=== PATIENT | female | born 1995 | race Caucasian/White ===

== ENCOUNTER 2022-09-27 08:20 | Emergency (ER) | payer BC, SELFPAY ==
--- NOTE | ~2022-09-27 | XR_ITS ---
EXAMINATION: XR finger 5th LT min 2V DATE: 09/27/2022 08:40 INDICATION: Pain at the left fifth digit post injury TECHNIQUE: Dorsal palmar, lateral and 2 oblique views of the left fifth digit were obtained COMPARISON: None FINDINGS: Alignment is normal. No fracture. Joint spaces are normal. Soft tissues are unremarkable. IMPRESSION: 1. Negative left fifth digit radiographs. Reviewed, dictated and finalized at location B.
[2022-09-27 08:31] VITALS: BP 140/80; PULSE 77; RESP 16; TEMP 37.3; O2SAT 99
--- NOTE | 2022-09-27 08:47 | ED.UPPEXIN ---
HPI - Extremity Injury (Upper) General Chief Complaint: Extremity Injury, Upper Stated Complaint: Left Hand Pain Time Seen by Provider: 09/27/22 08:41 Source: patient and RN notes reviewed Mode of arrival: ambulatory Limitations: no limitations History of Present Illness HPI narrative: Patient presents today complaining of injury to her left 5th finger. Last night she was walking her dog when a fire work when off and the dog ran away from her, jerking the leash on her finger. She currently rates her pain 4/10 and has been taking ibuprofen with some relief. Denies numbness or tingling. Related Data Home Medications Medication Instructions Recorded Confirmed escitalopram oxalate 20 mg tablet 20 mg PO DAILY 09/27/22 09/27/22 Allergies Allergy/AdvReac Type Severity Reaction Status Date / Time No Known Allergies Allergy Mild Verified 09/27/22 08:31 Review of Systems Review of Systems: CONSTITUTIONAL: Denies body aches, fever, chills, or sweats. EYES: Denies visual changes, redness, or discharge. ENT: Denies rhinorrhea, congestion, sore throat, or otalgia. CARDIOVASCULAR: Denies chest pain, palpitations, or edema. RESPIRATORY: Denies cough or dyspnea. GASTROINTESTINAL: Denies abdominal pain, nausea, vomiting, or diarrhea. GENITOURINARY: Denies dysuria or hematuria. SKIN: Denies rash, itching, or wounds. MUSCULOSKELETAL: Denies back pain, or myalgia.+ left 5th finger injury NEUROLOGIC: Denies headache, numbness, tingling, or weakness. PSYCH: Denies depression or anxiety. PMFSH Comments At time of signature, I have reviewed and agree with nursing past medical, surgical, social and family history unless otherwise noted. Please see nursing chart for further information. There is no relevant family history pertinent to the presenting complaint Exam Narrative: GENERAL: Well-appearing, well-nourished, and in no acute distress. HEAD: Normocephalic, atraumatic. EYES: EOMI. No redness or drainage. Conjunctivae normal. ENT: Mucous membranes pink and moist. NECK: Normal AROM. CHEST: No respiratory distress. EXTREMITIES: Left 5th finger: Tenderness to the proximal and middle phalanx with bruising to the volar aspect of the proximal phalanx. Distal sensation intact. Capillary refill normal. Somewhat decreased active flexion due to pain. SKIN: Warm, dry, no rash. Capillary refill normal. Normal skin turgor. NEURO: No focal deficits. Alert and oriented x3. Gait steady. PSYCH: Normal affect. No signs of depression or anxiety. Course Course Level of Care: Express Care Visit Vital Signs Vital signs: Vital Signs Temperature 99.1 F 09/27/22 08:31 Pulse Rate 77 09/27/22 08:31 Respiratory Rate 16 09/27/22 08:31 Blood Pressure 140/80 09/27/22 08:31 Pulse Oximetry 99 09/27/22 08:31 Oxygen Delivery Room Air 09/27/22 08:31 Temperature 99.1 F 09/27/22 08:31 Pulse Rate 77 09/27/22 08:31 Respiratory Rate 16 09/27/22 08:31 Blood Pressure 140/80 09/27/22 08:31 Pulse Oximetry 99 09/27/22 08:31 Oxygen Delivery Room Air 09/27/22 08:31 Reviewed. Pt has been instructed to follow up with her PCP regarding her elevated blood pressure today. Procedures Orthopedic Splinting/Casting Injury #1: Splinting/Casting Date: 09/27/22 Splinting/Casting Time: 08:54 Side: left Upper Extremity Injury Location: finger Upper Extremity Immobilizer: finger (other) Splint: prefabricated Pre-Procedure Neuro Vascular Exam: normal Post-Procedure Neuro Vascular Exam: normal Additional Comments: Placed by tech [facility] - Extremity Injury (Upper) MDM Narrative Medical decision making narrative: X-ray negative for fracture. Patient would like a splint for immobilization and comfort. Anticipatory guidance given. Differential Diagnosis Differential diagnosis: Likely finger sprain and other (, contusion, finger fracture, finger dislocation)
== END 2022-09-27 09:03 | disposition home or self-care (01) ==
PROVIDERS: Emergency Provider Nurse Practitioner
DX: S63.697A Other sprain of left little finger, initial encounter (principal); X50.9XXA Other and unspecified overexertion or strenuous movements or postures, initial encounter; Y93.K1 Activity, walking an animal; F41.9 Anxiety disorder, unspecified; F32.A Depression, unspecified
CPT/HCPCS: 29130; 73140; 99213; G0463

== ENCOUNTER 2023-08-13 23:24 | Emergency (ER) | payer OTHER, SELFPAY ==
--- NOTE | ~2023-08-13 | CT_ITS ---
CT of the Abdomen and Pelvis: Indication: Abdominal pain Technique: 2.5 mm axial scans were obtained through the abdomen and pelvis following intravenous adm inistration of 100 cc of Omnipaque 350. Dose reduction technique was used on this scan by utilizing a utomated exposure control and iterative reconstruction technique. The dose-length product (DLP) was 7 90.39 mGy-cm. Findings: Scans through the lung bases are unremarkable. There is diffuse fatty infiltration of liver. The spleen, pancreas, gallbladder, adrenals and kidneys are within normal limits. No evidence of aortic aneurysm. No lymphadenopathy. No bowel obstruction or bowel wall thickening. There is no evidence to suggest acute appendicitis. Images through the pelvis were performed. Urinary bladder unremarkable. No adnexal mass seen. IUD in place. No ascites. Impression: Diffuse hepatic steatosis. No other significant findings. Reviewed, dictated and finalized at [facility]. Impression: Diffuse hepatic steatosis. No other significant findings.
[2023-08-13 23:28] VITALS: BP 142/81; PULSE 71; RESP 15; TEMP 35.9; O2SAT 100
--- NOTE | 2023-08-13 23:35 | ECG_ITS ---
SEE SCANNED COPY FOR CONFIRMED REPORT MTDD
--- NOTE | 2023-08-13 23:55 | ED.NAVMDI ---
HPI - Nausea/Vomiting/Diarrhea General Chief complaint: Nausea/Vomiting/Diarrhea <AGUSTIN Ochoa Last Filed: 08/16/23 19:52> Stated complaint: n/v, headache <AGUSTIN Ochoa Last Filed: 08/16/23 19:52> Time Seen by Provider: 08/13/23 23:37 <AGUSTIN Ochoa Last Filed: 08/16/23 19:52> Source: patient <AGUSTIN Ochoa Last Filed: 08/16/23 19:52> Mode of arrival: ambulatory <AGUSTIN Ochoa Last Filed: 08/16/23 19:52> Limitations: no limitations <AGUSTIN Ochoa Last Filed: 08/16/23 19:52> History of Present Illness HPI Narrative: This is a 28 year old female that presents to the ER for abdominal pain and vomiting. Ongoing over the last month. Worsening the last couple of days. She has been seen at another ER without cause found. She was started on omeprazole with little relief. Reports currently she is experiencing substernal chest pain that is sharp in nature. Denies fevers. <AGUSTIN Ochoa Last Filed: 08/16/23 19:52> Related Data Home medications: Home Medications Medication Instructions Recorded Confirmed escitalopram oxalate 20 mg tablet 20 mg PO DAILY 09/27/22 09/27/22 <AGUSTIN Ochoa Last Filed: 08/16/23 19:52> Allergies/Adverse reactions: Allergies Allergy/AdvReac Type Severity Reaction Status Date / Time No Known Allergies Allergy Mild Verified 09/27/22 08:31 <AGUSTIN Ochoa Last Filed: 08/16/23 19:52> Review of Systems Review of Systems: CONSTITUTIONAL: Denies fever CARDIOVASCULAR: Reports chest pain RESPIRATORY: Denies dyspnea. GASTROINTESTINAL: Reports abdominal pain, nausea, vomiting, and diarrhea. GENITOURINARY: Denies dysuria <AGUSTIN Ochoa Last Filed: 08/16/23 19:52> All systems reviewed & are unremarkable except as noted in HPI and below <Shelli Coelho PA-C - Last Filed: 08/16/23 19:52> PMFSH Past Medical History Medical History: Medical History (Updated 08/16/23 @ 19:52 by Shelli Coelho PA-C) History of anxiety History of depression History of hypertension <Shelli Coelho PA-C - Last Filed: 08/16/23 19:52> Social History Social History: Social History (Updated 08/14/23 @ 00:03 by Shelli Coelho PA-C) Substance use: never <Shelli Coelho PA-C - Last Filed: 08/16/23 19:52> Exam Narrative: GENERAL: Well-appearing, well-nourished, and in no acute distress. HEAD: Normocephalic, atraumatic. EYES: EOMI. CHEST: Clear to auscultation. No respiratory distress. No wheezes rales or rhonchi HEART: Regular rate and rhythm. No murmur heard. Normal peripheral pulses. ABDOMEN: Soft, nontender, nondistended, normal active bowel sounds. EXTREMITIES: Normal range of motion. No edema. SKIN: Warm, dry, no rash. NEURO: No focal deficits. Alert and oriented x3. PSYCH: Normal mood and affect <Shelli Coelho PA-C - Last Filed: 08/16/23 19:52> Course Course Emergency Course: Patient updated on workup thus far. Care taken over by Dr. Carmona at shift change <Shelli Coelho PA-C - Last Filed: 08/16/23 19:52> VEHICLE MAINTENANCE TECHNICIAN/PA Physician Supervision For this patient encounter, I reviewed the VEHICLE MAINTENANCE TECHNICIAN or PA documentation, treatment plan, and medical decision making and had [id number] time with this patient. I performed all aspects of the MDM as documented. <Tran Carmona MD - Last Filed: 08/14/23 03:44> Vital Signs Vital signs: Vital Signs Temperature 96.6 F L 08/13/23 23:28 Pulse Rate 71 08/13/23 23:28 Respiratory Rate 15 08/13/23 23:28 Blood Pressure 142/81 H 08/13/23 23:28 Pulse Oximetry 100 08/13/23 23:28 Oxygen Delivery Room Air 08/13/23 23:28 Temperature 96.6 F L 08/13/23 23:28 Pulse Rate 64 08/14/23 03:43 Respiratory Rate 17 08/14/23 03:43 Blood Pressure 110/73 08/14/23 03:43 Pulse Oximetry 97 08/14/23 03:43 Oxygen Delivery Room Air 08/13/23 23:28 Gina Rodriguez
[2023-08-14] MEDS: FAMOTIDINE 20 MG/2 ML VIAL IV PUSH (00:11)
[2023-08-14] MEDS: ONDANSETRON INJ 4 MG/2 ML VIAL IV PUSH (00:11)
[2023-08-14] MEDS: SODIUM CHLORIDE 0.9% IV 1,000 ML 999 ML IV CONT ×2 (00:11→02:01)
[2023-08-14 00:17] LABS: Basophils Absolute Auto 0.1 K/mm3 (0.0-0.1); Basophils Percent Auto 0.5 % (0.2-1.2); Eosinophils Absolute Auto 0.3 K/mm3 (0-0.3); Eosinophils Percent Auto 2.5 % (0-4.4); Hematocrit 40.7 % (37.0-47.0); Hemoglobin 14.3 g/dL (12.0-15.0); Immature Granulocyte Absolute 0.02 K/mm3 (0.00-0.031); Immature Granulocyte Percent A 0.2 % (0-0.5); Lymphocytes Absolute Auto 2.95 K/mm3 (0.9-3.2); Lymphocytes Percent Auto 28.9 % (18.3-44.2); Mean Corpuscular HGB Conc 35.1 g/dl (32-36); Mean Corpuscular Hemoglobin 30.8 pg (26-34); Mean Corpuscular Volume 87.7 fl (80-100); Mean Platelet Volume 10.9 fl (7.4-10.4); Monocytes Absolute Auto 0.8 K/mm3 (0.1-0.6); Monocytes Percent Auto 7.8 % (2.6-8.5); Neutrophils Absolute Auto 6.1 K/mm3 (1.3-6.7); Neutrophils Percent Auto 60.1 % (45.5-73.1); Platelet Count Result 230 k/mm3 (150-375); Red Blood Count 4.64 M/mm3 (4.2-5.4); Red Cell Distribution Width 14.2 % (11.5-14.5); White Blood Count 10.2 K/mm3 (4.5-10.0)
[2023-08-14 00:25] LABS: Prothrombin Time 13.7 Seconds (11.1-14.7)
[2023-08-14 00:26] LABS: Partial Thromboplastin Time 27.1 Seconds (22.3-36.8)
[2023-08-14 00:28] LABS: Alanine Aminotransferase 72 U/L (6-35); Albumin Level 4.8 g/dL (3.5-5.1); Alkaline Phosphatase 69 U/L (38-126); Anion Gap 10 mmol/L (4-12); Aspartate Amino Transferase 43 U/L (14-36); Bilirubin,Total 1.2 mg/dL (0.2-1.3); Blood Urea Nitrogen 11 mg/dL (7-17); Calcium 9.6 mg/dL (8.4-10.2); Carbon Dioxide 27 mmol/L (22-30); Chloride 100 mmol/L (98-107); Estimated CRCL calculation 108 ml/min; Estimated Glomerular Filt Rate > 60; Glucose 97 mg/dL (65-110); Lipase 95 U/L (23-300); Potassium 3.6 mmol/L (3.4-5.0); Sodium 137 mmol/L (137-145)
[2023-08-14 00:30] LABS: D Dimer 0.35 ug/mL (<0.48)
[2023-08-14 02:02] VITALS: BP 120/70; PULSE 63; RESP 19; O2SAT 100
[2023-08-14 02:12] LABS: Appearance Urine Clear (Clear); Bilirubin Urine Negative (Negative); Blood Urine Negative (Negative); Color Urine Yellow (Yellow); Glucose Urine UA Negative (Negative); Ketones Urine 1+ mg/dL (Negative); Leukocyte Esterase Ur Negative LEU/UL (Negative); Nitrate Urine Negative (Negative); Protein Urine Negative (Negative); Urobilinogen Urine 0.2 mg/dL (<2.0); pH Urine 5.5 (5.0-9.0)
[2023-08-14 02:25] LABS: Add Urine Microscopic? YES; Specific Grav Ur 1.059 (1.001-1.035)
[2023-08-14] MEDS: KETOROLAC 15 MG/ML VIAL (*BKC) IV PUSH (03:14)
[2023-08-14 03:43] VITALS: BP 110/73; PULSE 64; RESP 17; O2SAT 97
== END 2023-08-14 03:45 | disposition home or self-care (01) ==
PROVIDERS: Physician Assistant; Emergency Provider Emergency Medicine
DX: R10.9 Unspecified abdominal pain (principal); R11.2 Nausea with vomiting, unspecified; R19.7 Diarrhea, unspecified; I10 Essential (primary) hypertension; F41.9 Anxiety disorder, unspecified; F32.A Depression, unspecified; K76.0 Fatty (change of) liver, not elsewhere classified
CPT/HCPCS: 36415; 74177; 80053; 81001; 81025; 83690; 85025; 85380; 85610; 85730; 93005; 96361; 96374; 96375; 99284; J1885; J2405; J7030; Q9967

== ENCOUNTER 2023-10-03 01:57 | Emergency (ER) | payer OTHER, SELFPAY ==
--- NOTE | ~2023-10-03 | XR_ITS ---
Clinical Indication: Chest pain PA and lateral views of the chest: Comparison: 06/12/2011 Findings: The lungs are clear, without evidence of focal consolidation or pleural effusion. Cardiome diastinal silhouette is within normal limits. Bones and soft tissues are unremarkable. Impression: Normal chest. Reviewed, dictated and finalized at location . Impression: Normal chest.
--- NOTE | 2023-10-03 01:59 | ECG_ITS ---
Test Date: 2023-10-03 02:09:52 Measurements Intervals [place] Rate: 84 P: 40 FL: 146 QRS: 61 QRSD: 93 T: 41 QT: 369 QTc: 437 Interpretive Statements SINUS RHYTHM BASELINE ARTIFACT- I, III, AVL NORMAL ECG No previous ECG available for comparison Electronically Signed On 10-03-2023 06:12:37 CDT by Kristofer Rosa D.O.
[2023-10-03 02:00] VITALS: BP 130/112; PULSE 111; RESP 17; TEMP 36.4; O2SAT 98
[2023-10-03 02:16] LABS: Basophils Absolute Auto 0.1 K/mm3 (0.0-0.1); Basophils Percent Auto 0.4 % (0.2-1.2); Eosinophils Absolute Auto 0.2 K/mm3 (0-0.3); Eosinophils Percent Auto 1.9 % (0-4.4); Hematocrit 40.6 % (37.0-47.0); Hemoglobin 14.5 g/dL (12.0-15.0); Immature Granulocyte Absolute 0.03 K/mm3 (0.00-0.031); Immature Granulocyte Percent A 0.3 % (0-0.5); Lymphocytes Absolute Auto 2.94 K/mm3 (0.9-3.2); Lymphocytes Percent Auto 24.9 % (18.3-44.2); Mean Corpuscular HGB Conc 35.7 g/dl (32-36); Mean Corpuscular Hemoglobin 31.9 pg (26-34); Mean Corpuscular Volume 89.4 fl (80-100); Mean Platelet Volume 10.7 fl (7.4-10.4); Monocytes Percent Auto 8.6 % (2.6-8.5); Neutrophils Absolute Auto 7.5 K/mm3 (1.3-6.7); Neutrophils Percent Auto 63.9 % (45.5-73.1); Platelet Count Result 290 k/mm3 (150-375); Red Blood Count 4.54 M/mm3 (4.2-5.4); Red Cell Distribution Width 14.4 % (11.5-14.5); White Blood Count 11.8 K/mm3 (4.5-10.0)
[2023-10-03] MEDS: ASPIRIN 81 MG CHEWABLE TABLET 324 MG PO (02:22)
[2023-10-03 02:25] VITALS: O2SAT 100
[2023-10-03 02:26] VITALS: BP 126/84; PULSE 90; RESP 15; O2SAT 99
[2023-10-03 02:27] LABS: Prothrombin Time 13.4 Seconds (11.1-14.7)
[2023-10-03 02:28] LABS: Partial Thromboplastin Time 30.2 Seconds (22.3-36.8)
[2023-10-03 02:30] LABS: Alanine Aminotransferase 65 U/L (6-35); Albumin Level 4.9 g/dL (3.5-5.1); Alkaline Phosphatase 79 U/L (38-126); Anion Gap 12 mmol/L (4-12); Aspartate Amino Transferase 35 U/L (14-36); Bilirubin,Total 1.2 mg/dL (0.2-1.3); Blood Urea Nitrogen 8 mg/dL (7-17); Calcium 9.7 mg/dL (8.4-10.2); Carbon Dioxide 31 mmol/L (22-30); Chloride 96 mmol/L (98-107); Estimated CRCL calculation 119 ml/min; Estimated Glomerular Filt Rate > 60; Glucose 109 mg/dL (65-110); Lipase 115 U/L (23-300); Potassium 3.2 mmol/L (3.4-5.0); Sodium 139 mmol/L (137-145)
[2023-10-03 02:41] LABS: Troponin I < 0.012 ng/mL (0.000-0.034)
--- NOTE | 2023-10-03 02:49 | ED.CHESTPAIN ---
HPI - Chest Pain General Chief Complaint: Chest Pain Stated Complaint: chest pain, dizziness Time Seen by Provider: 10/03/23 02:02 History of Present Illness HPI narrative: Pt with PMH depression has had on/off chest pain for 1.5mo, seen her PCP who tried GERD meds, no improvement; today started having worsening chest pain with nausea/vomiting, some slight shortness of breath. No lower extremity swelling/pain but occasionally feels like her left leg falling asleep. Related Data Home Medications Medication Instructions Recorded Confirmed escitalopram oxalate 20 mg tablet 20 mg PO DAILY 09/27/22 09/27/22 Allergies Allergy/AdvReac Type Severity Reaction Status Date / Time No Known Allergies Allergy Mild Verified 09/27/22 08:31 Review of Systems Review of Systems: All systems reviewed & are unremarkable except as noted in HPI and below PMFSH Past Medical History Medical History (Updated 10/03/23 @ 02:45 by Elvira Oliva MD) History of anxiety History of depression History of hypertension Social History Social History (Updated 08/14/23 @ 00:03 by Shelli Coelho PA-C) Substance use: never Exam Narrative: EXAMINATION OF ORGAN SYSTEMS/BODY AREAS: Constitutional: Vital signs per nursing GENERAL:[No acute distress, non-toxic appearing.] HEAD: Normal with no signs of head trauma. EYES: EOMI, conjunctiva normal ENT: Hearing grossly intact LUNGS: Nonlabored breathing. HEART: [Regular rate and rhythm]; normal radial and DP pulses bilaterally ABD: [Soft], [nontender to palpation] EXT: Normal range of motion SKIN: [No rashes or lesions.] NEURO: [Alert and oriented x 3. No gross focal sensory or strength deficits.] PSYCH: Normal affect Course Vital Signs Vital signs: Vital Signs Temperature 97.5 F L 10/03/23 02:00 Pulse Rate 111 H 10/03/23 02:00 Respiratory Rate 17 10/03/23 02:00 Blood Pressure 130/112 H 10/03/23 02:00 Pulse Oximetry 98 10/03/23 02:00 Oxygen Delivery Room Air 10/03/23 02:00 Temperature 97.5 F L 10/03/23 02:00 Pulse Rate 90 10/03/23 02:26 Respiratory Rate 15 10/03/23 02:26 Blood Pressure 126/84 10/03/23 02:26 Pulse Oximetry 99 10/03/23 02:26 Oxygen Delivery Room Air 10/03/23 02:25 MDM - Chest Pain MDM Narrative Medical decision making narrative: ED COURSE AND MEDICAL DECISION MAKIN-year-old female presenting with chest pain. EKG done in triage negative for acute ischemic changes. Cardiac workup is initiated. EKG: Performed in triage and interpreted by me. Normal sinus rhythm. Rate 84. Normal axis. [place] normal. QRS duration normal. QTc normal. No pathologic Q waves. No ST segment elevation or depression to suggest acute ischemia. No RV strain pattern. HEART score is 0 with no acute ischemic changes on EKG and negative troponin making ACS unlikely. D-dimer was negative making PE unlikely. Presentation not consistent with dissection or aneurysm without radiation of pain or pulse deficits. CXR negative for mediastinal widening. No abdominal pain or signs of sepsis that would be concerning for esophageal perforation or mediastinitis. No cardiomegaly or JVD to suggest pericardial effusion/tamponade. HEART Score: [0]. (Risk of major adverse cardiac events over 6 weeks: Score of 0-3 is low risk <2% ; Score of 4-6 is moderate risk ~12-15%; Score of 7-12 is high risk ~50%). - History - [0]. (Not suspicious 0; moderately suspicious 1; highly suspicious 2). - EKG - [0]. (No ST changes 0; non-specific ST/T changes 1; ST depression 2). - Age - [0]. (<45 = 0; 46-65 = 1; >65 = 2). - Risk factors - [0]. (0 factors = 0; 1-2 factors = 1; >2 factors = 2). - Troponin - [0]. (Normal = 0; Indeterminate = 1; High = 2). On repeat evaluation just prior to discharge, the patient is no acute distress. I had a long discussion with the patient and with shared decision making, she is comfortable with outpatient management. She was given clear return instructio
[2023-10-03] MEDS: POTASSIUM CHLORIDE 20 MEQ ER TABLET 40 MEQ PO (02:51)
[2023-10-03] MEDS: ONDANSETRON INJ 4 MG/2 ML VIAL IV PUSH (02:51)
[2023-10-03 03:15] LABS: D Dimer < 0.27 ug/mL (<0.48)
== END 2023-10-03 03:42 | disposition home or self-care (01) ==
PROVIDERS: Emergency Provider Emergency Medicine; PCP Nurse Practitioner Family
DX: R07.9 Chest pain, unspecified (principal); R11.2 Nausea with vomiting, unspecified; I10 Essential (primary) hypertension
CPT/HCPCS: 36415; 71046; 80053; 83690; 84484; 85025; 85380; 85610; 85730; 93005; 96374; 99284; A9270; J2405